=== PATIENT | male | born 1970 | race Caucasian/White ===

== ENCOUNTER → 2018-04-28 | Outpatient (CLI) | payer BC, OTHER | LOC: M WUC 14:05 | DX: M25.762 Osteophyte, left knee (principal); M25.562 Pain in left knee | CPT/HCPCS: 73564 ==

== ENCOUNTER 2019-07-15 13:51 | Emergency (ER) | payer OTHER, BC ==
[~2019-07-15] VITALS: Ht 167.6 cm; Wt 115.9 kg
[2019-07-15 13:52] VITALS: BP 171/88
[2019-07-15] MEDS ORDERED: IBUP-1022 PO (14:32)
== END 2019-07-15 14:50 | disposition home or self-care (01) ==
LOC: M ED 13:51
DX: S83.92XA Sprain of unspecified site of left knee, initial encounter (principal); X50.1XXA Overexertion from prolonged static or awkward postures, initial encounter; Y92.89 Other specified places as the place of occurrence of the external cause; Y93.9 Activity, unspecified; Y99.0 Civilian activity done for income or pay

== ENCOUNTER → 2019-10-20 | Outpatient (REF) | payer OTHER, BC ==
[~2019-10-20] MED LIST: IBUP-1022 PO
[2019-10-21 16:27] LABS: TESTOSTERONE FREE (DIRECT) 8.4 pg/mL (6.8-21.5)
== END ==
LOC: M LAB REF 11:20
PROVIDERS: ATTEND Physician Assistant Medical
DX: R68.82 Decreased libido (principal)

== ENCOUNTER → 2019-12-07 | Outpatient (CLI) | payer BC, OTHER ==
--- NOTE | 2020-01-30 07:56 | SLEEPCENT ---
DATE: 12/07/2019 ORDERED BY: OSCAR Esparza Nocturnal polysomnography was performed for evaluation of sleep physiology in this patient with a history of excessive somnolence and non-restorative sleep. Seven hours and 18 minutes of data were reviewed. There were 250.5 minutes of sleep identified. Sleep latency was prolonged at 11.5 minutes. REM latency was prolonged at 287 minutes. Sleep architecture showed fragmentation and poor progression with periods of wake. There was one REM cycle. Overall sleep efficiency was 58.4%. The electrocardiogram showed a sinus rhythm with occasional premature ventricular contractions (PVCs), average heart rate 58 beats per minute. EEG showed reasonably normal waveforms for awake and sleep. There were 301 respiratory events identified of ten seconds in duration or greater for an apnea hypopnea index of 72.1. The events were permanently obstructed, not exclusive to sleep stage nor body posture. Arousals from respiratory events were seen 36.9 times per hour and oxygen desaturations were seen into the 70s with minimal limb activity, and remaining measures of sleep physiology were normal. IMPRESSIONS: Obstructive sleep apnea syndrome, severe (G47.33). Apnea hypopnea index 72.1. RECOMMENDATION: The patient should be encouraged to return to the sleep disorder center for pressure therapy at his earliest convenience. In the interim, alcohol and sedative avoidance should be practiced and caution exercised during the operation of motor vehicles. ckd /hts Codie Stroud edited: 03/14/2020 1049 [email or web address] [email or web address]
== END ==
LOC: M SLEEP 20:00
PROVIDERS: ATTEND Physician Assistant
DX: R06.83 Snoring (principal)

== ENCOUNTER → 2020-01-11 | Outpatient (CLI) | payer BC, OTHER ==
--- NOTE | 2020-01-27 15:04 | SLEEPCENT ---
DATE: 01/11/2020 ORDERED BY: Arturo Gonzáles Nocturnal polysomnography was performed for the titration of pressure therapy in this patient with obstructive sleep apnea syndrome, apnea-hypopnea index of 72. For testing, patient was fit with a [employer] Quatro full-face mask of small size. There was 4 cm of water pressure applied to the circuit, and the lights were extinguished. There was 6 hours and 56 minutes of data reviewed. There was 273.5 minutes of sleep identified. Sleep latency was normal at 9.5 minutes. REM latency was short at 40 minutes. Sleep architecture was good with one period of wake. There were three REM cycles. Overall sleep efficiency was reduced at 66.5%. The electrocardiogram showed a sinus rhythm with an average heart rate of 46 beats per minute. EEG showed normal waveforms for wake and sleep. Respiratory events were reasonably palliated with CPAP at a pressure of +10, and remaining measures of sleep physiology were normal. IMPRESSION: Obstructive sleep apnea syndrome (G47.33). RECOMMENDATION: Nightly use of pressure therapy, 10 cm of water. MTDD
== END ==
LOC: M SLEEP 20:00
PROVIDERS: ATTEND Physician Assistant
DX: G47.33 Obstructive sleep apnea (adult) (pediatric) (principal)

== ENCOUNTER → 2020-06-15 | Outpatient (CLI) | payer SELFPAY | LOC: M LABSMTC 12:36 | PROVIDERS: ATTEND Pediatrics | DX: Z20.822 Contact with and (suspected) exposure to COVID-19 (principal) ==

== ENCOUNTER → 2020-06-27 | Outpatient (CLI) | payer SELFPAY | LOC: M LABSMTC 10:27 | PROVIDERS: ATTEND Pediatrics | DX: Z20.822 Contact with and (suspected) exposure to COVID-19 (principal) ==

== ENCOUNTER → 2021-09-24 | Outpatient (CLI) | payer BC, OTHER | LOC: M WUC 11:37 | PROVIDERS: ATTEND Physician Assistant Medical | DX: M54.6 Pain in thoracic spine (principal); M25.78 Osteophyte, vertebrae ==

== ENCOUNTER → 2021-12-23 | Outpatient (CLI) | payer OTHER, BC | LOC: M RAD 11:19 | PROVIDERS: ATTEND Orthopaedic Surgery | DX: M25.562 Pain in left knee (principal) ==

== ENCOUNTER → 2022-04-24 | Outpatient (CLI) | payer BC, OTHER ==
[~2022-04-24] MED LIST changes: +LOSA50TA5 PO; +METF500T13 PO
== END ==
LOC: M LABSMTC 10:37
PROVIDERS: ATTEND Anesthesiology
DX: Z01.812 Encounter for preprocedural laboratory examination (principal); Z11.52 Encounter for screening for COVID-19

== ENCOUNTER → 2022-06-12 | Outpatient (CLI) | payer BC, OTHER | LOC: M LABSMTC 10:44 | PROVIDERS: ATTEND Anesthesiology | DX: Z01.818 Encounter for other preprocedural examination (principal) ==

== ENCOUNTER 2022-06-17 07:44 | Day surgery (SDC) | payer BC, OTHER ==
[~2022-06-17] VITALS: Ht 170.2 cm; Wt 114.8 kg
[~2022-06-17 07:44] MED LIST changes: +NS 1,000 ML IV ONE
[2022-06-17] MEDS ORDERED: LIDOCAINE 2% 100MG/5ML SDV (FOR ANES.) As Ordered ONE (09:07)
[2022-06-17] MEDS ORDERED: ONDANSETRON 4MG 2ML VIAL As Ordered ONE (09:07)
[2022-06-17] MEDS ORDERED: propofoL 500 MG/50 ML VIAL As Ordered ONE (09:07)
[2022-06-17] MEDS ORDERED: LABETALOL 100MG/20ML VIAL As Ordered ONE (09:07)
[2022-06-17 09:52] VITALS: BP 150/89
== END 2022-06-17 10:00 | disposition home or self-care (01) ==
LOC: M OPP 07:44
PROVIDERS: ATTEND Internal Medicine Gastroenterology
DX: Z12.11 Encounter for screening for malignant neoplasm of colon (principal); K57.30 Diverticulosis of large intestine without perforation or abscess without bleeding; K64.8 Other hemorrhoids; Z79.1 Long term (current) use of non-steroidal anti-inflammatories (NSAID); Z79.84 Long term (current) use of oral hypoglycemic drugs; Z79.899 Other long term (current) drug therapy; E11.9 Type 2 diabetes mellitus without complications; G47.33 Obstructive sleep apnea (adult) (pediatric); Z99.89 Dependence on other enabling machines and devices; I10 Essential (primary) hypertension

== ENCOUNTER → 2023-02-24 | Outpatient (CLI) | payer BC, OTHER ==
[~2023-02-24] MED LIST changes: -NS 1,000 ML IV ONE
[2023-02-24 11:19] LABS: HEMATOCRIT 44.6 % (42.0-52.0); HEMOGLOBIN 15.2 g/dl (13.5-17.5); MEAN CORPUSCULAR HGB CONC 34.1 g/dl (32.0-36.5); MEAN CORPUSCULAR VOLUME 85.1 fl (80.0-96.0); PLATELET COUNT, AUTOMATED 286 10^3/uL (150-450); RED BLOOD COUNT 5.24 10^6/uL (4.30-6.10); WHITE BLOOD COUNT 7.2 10^3/uL (4.0-10.0)
[2023-02-24 11:32] LABS: INR 1.03; PROTHROMBIN TIME 13.2 SECONDS (12.5-14.5)
[2023-02-24 11:34] LABS: ERYTHROCYTE SEDIMENTATION RATE 11 mm/hr (0-20)
[2023-02-24 11:48] LABS: ALKALINE PHOSPHATASE 82 U/L (46-116); ALT/SGPT 32 U/L (7.0-40); AST/SGOT 12 U/L (<34); BILIRUBIN,TOTAL 0.4 MG/DL (0.3-1.2); BLOOD UREA NITROGEN 13 MG/DL (9-23); CARBON DIOXIDE LEVEL 28 MMOL/L (20-31); CHLORIDE LEVEL 104 MMOL/L (98-107); CREATININE FOR GFR 0.86 MG/DL (0.70-1.30); GLOMERULAR FILTRATION RATE > 60.0 (>56); GLUCOSE, FASTING 167 MG/DL (60-100); POTASSIUM SERUM 3.8 MMOL/L (3.5-5.1); SODIUM LEVEL 137 MMOL/L (136-145); TOTAL PROTEIN 6.8 G/DL (5.7-8.2)
[2023-02-24 15:42] LABS: ALBUMIN 3.8 G/DL (3.2-5.2)
== END ==
LOC: M RAD 10:05
PROVIDERS: ATTEND Orthopaedic Surgery
DX: Z01.818 Encounter for other preprocedural examination (principal); M17.11 Unilateral primary osteoarthritis, right knee

== ENCOUNTER → 2023-09-02 | Outpatient (REF) | payer BC, OTHER ==
[2023-09-02 18:52] LABS: RHEUMATOID FACTOR QUANT < 3.5 IU/ML (<14)
== END ==
LOC: M LAB REF 16:38
PROVIDERS: ATTEND Physician Assistant Medical
DX: M06.9 Rheumatoid arthritis, unspecified (principal)

== ENCOUNTER → 2024-04-19 | Outpatient (REF) | payer BC ==
[2024-04-20 14:17] LABS: ANA SCREEN, IFA NEGATIVE (NEGATIVE)
== END ==
LOC: M SFHCRHEU 10:12
PROVIDERS: ATTEND Internal Medicine
DX: R76.8 Other specified abnormal immunological findings in serum (principal)

== ENCOUNTER → 2025-01-02 | Outpatient (CLI) | payer BC | LOC: M WUC 15:45 | PROVIDERS: ATTEND Internal Medicine | DX: M25.521 Pain in right elbow (principal); M65.831 Other synovitis and tenosynovitis, right forearm ==

== ENCOUNTER → 2025-02-07 | Outpatient (CLI) | payer BC ==
[~2025-02-07] MED LIST changes: -IBUP-1022 PO; +IBUP600T42 PO
[2025-02-07 13:33] LABS: ESTIMATED AVERAGE GLUCOSE 183.0 MG/DL (60-110)
== END ==
LOC: M LAB 12:01
PROVIDERS: ATTEND Orthopaedic Surgery Adult Reconstructive Orthopaedic Surgery
DX: E11.8 Type 2 diabetes mellitus with unspecified complications (principal)

== ENCOUNTER 2025-04-04 17:26 | Emergency (ER) | payer BC ==
[~2025-04-04] VITALS: Ht 167.6 cm; Wt 114.5 kg
[2025-04-04 17:30] VITALS: TEMP 97.5; O2SAT 100
[2025-04-04 18:45] VITALS: BP 170/102
== END 2025-04-04 20:00 | disposition left against medical advice (07) ==
LOC: M ED 17:26
DX: Z53.21 Procedure and treatment not carried out due to patient leaving prior to being seen by health care provider (principal)